=== PATIENT | female | born 2005 | race Caucasian/White ===

== ENCOUNTER 2024-12-07 11:34 | Day surgery (SDC) | payer OTHER, BC, SELFPAY ==
[2024-12-03 07:26] VITALS: BMI 20.2
--- NOTE | 2024-12-07 | PATH_ITS ---
[facility] Accession Number: [id number] No. of containers..01 Tissue . 01 Material submitted: . foot - RIGHT PLANTAR FOOT MASS . 01 Diagnosis: RIGHT PLANTAR FOOT, BIOPSY: Consistent with surface of verruca vulgaris. . Note: Only small superficial areas of the lesion are visualized histologically, limiting evaluation. MRV 12/14/2024 1700 Local . 01 Electronically signed: . Heidy Santiago MD, Dermatopathologist NPI- [id number] . 01 Gross description: . RIGHT PLANTAR FOOT MASS: Received in formalin is 1 fragment of henderson soft tissue measuring 1.0 x 0.7 x 0.2 cm. Tissue is inked. Specimen is sectioned and submitted in its entirety in 1 cassette. /KRYS 12/11/2024 1901 Local . 01 Pathologist provided ICD-10: B07.9 . 01 CPT . 777460 Specimen Comment: A courtesy copy of this report has been sent to [phone] Performed at: [address] [address], [place], [place] [id number] MD Wilian Hameed MD Phone: [phone]
[2024-12-07 12:29] VITALS: BP 123/78; PULSE 75; RESP 16; TEMP 36.2; O2SAT 98; BMI 20.2
[2024-12-07] MEDS: LACTATED RINGERS 1,000 ML 42 ML IV (12:37)
[2024-12-07] MEDS: ACETAMINOPHEN 325 MG TABLET 975 MG PO (12:38)
[2024-12-07] MEDS: SCOPOLAMINE 1 PATCH TOP (12:38)
--- NOTE | 2024-12-07 13:48 | P.OP_ITS ---
Operative Date/Time/Diagnoses Date of procedure: 12/07/24 Time of procedure: 13:48 Pre-op diagnosis: Right foot painful mass, suspect plantar wart Post-op diagnosis: same Procedure & Clinicians Procedure: Right fifth metatarsal excision and currettage skin mass Same procedure as scheduled: Yes Indications: 18-year-old female with ongoing painful skin mass on the bottom of the right foot. Conservative measures have failed to alleviate the pain and it is suspected to be verrucoid lesion. We spoke of the options for reduction or removal of the mass and she would like to proceed with surgery. Consent is reviewed and alternatives are given. There were no contraindications to the procedure at this time. Surgeon: Marry Chen Click Yes if Unassisted: Yes Anesthesia Type: MAC +/- and Sedation Operative Notes Findings: Superficial cap and some of the underlying tissue of the skin attached was thick and showed pinpoint bleeding on debridement. Closure Type: not applicable Specimen(s): other Prosthetic devices, grafts, tissues, transplants, or devices: Superficial cap and some of the attached underlying tissue of the skin on the fifth plantar metatarsal area was sent for identification to Pathology. Estimated Blood Loss (mL): 2 Blood products transfused: none Procedure in detail: Patient was brought to the operating room and placed on the operating table in the supine position. After mild IV sedation local anesthesia was used to infiltrate around the skin mass on the plantar right foot using the recorded injectables. The right foot was then prepped and draped in the usual aseptic m denise. After a check of anesthesia, a currette and #15 blade was used to pare down the overlying hyperkeratotic tissue of the verrucoid lesion under the 5th metatarsal. Pinpoint capillary bleeding of the verrucoid tissue was noted. Measurement of the lesion was approximately 0.6 x 1.0 cm. This tissue was passed off field and sent to pathology for identified. A curette was used to core out the central portion down to the deep fascia. Next cautery was performed to the center and surrounding edge of the skin and patel of the verruca. This was then curettaged, checked, and recauterized. This was done in a cyclic manner until it was noticeably back to clean and healthy bleeding tissue without skin line interruption. Margin was taken on all sides of the original lesion to make sure to include all elements of the verrucoid tissue. Care was taken to also use suction during the process for any aerosol particles from the cautery. The area was irrigated with copious amounts of normal sterile saline. The foot was then dressed with Xeroform, gauze, Kerlix, Coban, stockinette, and placed in a postoperative shoe. Vascular status remained intact to the foot throughout the procedure. Patient was transferred to the PACU with vital signs stable. Complications: none Post-operative Condition: stable Disposition: PACU Plan for aftercare: Following a period of postoperative monitoring, the patient will be discharged to home on written and oral postoperative instructions including keeping the dressing dry and intact, minimize weight to the surgical foot, elevating the foot when seated at home. DVT prevention techniques have been reviewed. Dressing information is given.
--- NOTE | 2024-12-07 13:48 | PM.PREOP ---
Pre-operative Note Interval Note History & Physical reviewed/Exam performed by Physician: Yes Changes to H&P: No
[2024-12-07] MEDS: CEFAZOLIN VIAL 1 GM in SODIUM CHLORIDE 0.9% 100 ML IV (14:00)
--- NOTE | 2024-12-07 14:00 | SUR.OPER ---
Supine on padded OR bed, head on pillow, arms secured on padded arm boards at <90 degrees abduction, legs uncrossed, safety belt at thigh, tape over blanket over lower legs. Bump under right hip. Right leg propped on towels.
[2024-12-07] MEDS: BACITRACIN 28 GM OINT 1 APPLIC TOP (14:21)
[2024-12-07] MEDS: BUPIVACAINE 0.5% W/ EPI (PF) 30 ML VIAL INJ (14:21)
[2024-12-07 14:33] VITALS: BP 100/58; PULSE 60; RESP 16; TEMP 36.2; O2SAT 100
[2024-12-07 14:38] VITALS: BP 99/55; PULSE 61; RESP 18; O2SAT 100
[2024-12-07 14:45] VITALS: BP 99/60; PULSE 59; RESP 14; TEMP 36.1; O2SAT 98
[2024-12-07 14:50] VITALS: BP 110/59; PULSE 77; RESP 16; O2SAT 98
== END 2024-12-07 15:24 | disposition home or self-care (01) ==
PROVIDERS: Referring Provider Podiatrist; Visit Provider Podiatrist
PROC: (CPT 17110; principal; 2024-12-07 13:30)
DX: B07.0 Plantar wart (principal); M79.671 Pain in right foot; F17.200 Nicotine dependence, unspecified, uncomplicated
CPT/HCPCS: 17110; 81025; J0690; J2704